=== PATIENT | female | born 1950 | race Caucasian/White ===

== ENCOUNTER → 2017-04-22 | Outpatient (CLI) | payer OTHER ==
[~2017-04-22] MED LIST: ALLOPURINOL100 MG PO; ATIVAN0.5 MG PO; ATORVASTATIN CA20 M1 PO; CYMBALTA60 MG PO; GLUCOPHAGE500 MG PO; HYDROCODONE BIT1 T20 PO; KEFLEX 500 MG E2 CAP PO; METFORMIN HCL500 MG PO; NABUMETONE750 M1 PO; NEURONTIN300 MG PO; SYNTHROID,LEV125 MCG PO; Synthroid,Levo88 MCG PO; TROSPIUM CHLORI60 M1 PO; VANCO 1 GR1 GM/250 M IV; ZOLOFT100 MG PO
== END | disposition home or self-care (01) ==
LOC: ORTHO 02:00
DX: M17.12 Unilateral primary osteoarthritis, left knee (principal); M25.762 Osteophyte, left knee

== ENCOUNTER → 2017-07-16 | Outpatient (CLI) | payer OTHER | END | disposition home or self-care (01) | LOC: US 12:49 | DX: I73.9 Peripheral vascular disease, unspecified (principal) ==

== ENCOUNTER → 2018-11-12 | Outpatient (CLI) | payer OTHER ==
[~2018-11-12] MED LIST changes: +VICODIN 5-3001 EACH PO
== END | disposition home or self-care (01) ==
LOC: ORTHO 00:57
DX: S52.572D Other intraarticular fracture of lower end of left radius, subsequent encounter for closed fracture with routine healing (principal); X58.XXXD Exposure to other specified factors, subsequent encounter

== ENCOUNTER → 2018-11-24 | Outpatient (CLI) | payer OTHER | END | disposition home or self-care (01) | LOC: ORTHO 00:04 | DX: S52.572D Other intraarticular fracture of lower end of left radius, subsequent encounter for closed fracture with routine healing (principal); X58.XXXD Exposure to other specified factors, subsequent encounter ==

== ENCOUNTER → 2018-12-10 | Outpatient (CLI) | payer OTHER | END | disposition home or self-care (01) | LOC: RAD 12:47 | DX: Z13.820 Encounter for screening for osteoporosis (principal); Z78.0 Asymptomatic menopausal state ==

== ENCOUNTER → 2018-12-15 | Outpatient (CLI) | payer OTHER | END | disposition home or self-care (01) | LOC: ORTHO 00:56 | DX: S52.572D Other intraarticular fracture of lower end of left radius, subsequent encounter for closed fracture with routine healing (principal); X58.XXXD Exposure to other specified factors, subsequent encounter ==

== ENCOUNTER → 2019-01-12 | Outpatient (CLI) | payer OTHER | END | disposition home or self-care (01) | LOC: ORTHO 01-11 19:06 | DX: S52.572D Other intraarticular fracture of lower end of left radius, subsequent encounter for closed fracture with routine healing (principal); X58.XXXD Exposure to other specified factors, subsequent encounter ==

== ENCOUNTER → 2019-07-21 | Outpatient (CLI) | payer OTHER ==
[2019-07-21 16:55] LABS: BACTERIA 1+; BILIRUBIN NEGATIVE (NEGATIVE); BLOOD NEGATIVE (NEGATIVE); CLARITY CLEAR (CLEAR); COLOR YELLOW (YELLOW); EPITHELIAL CELLS 21-30; GLUCOSE NEGATIVE (NEGATIVE); KETONE NEGATIVE (NEGATIVE); LEUKO ESTERASE TRACE (NEGATIVE); NITRITE NEGATIVE (NEGATIVE); UROBILINOGEN 0.2 E.U./dl (0.2-1.0)
== END | disposition home or self-care (01) ==
LOC: LAB 13:29
PROVIDERS: Internal Medicine
DX: N39.0 Urinary tract infection, site not specified (principal)

== ENCOUNTER 2021-04-16 12:27 | Emergency (ER) | payer OTHER ==
[~2021-04-16] VITALS: Wt 77.1 kg
== END 2021-04-16 14:39 | disposition home or self-care (01) ==
LOC: ED 12:27
DX: S00.12XA Contusion of left eyelid and periocular area, initial encounter (principal); S00.83XA Contusion of other part of head, initial encounter; S60.011A Contusion of right thumb without damage to nail, initial encounter; M47.892 Other spondylosis, cervical region; M10.9 Gout, unspecified; E03.9 Hypothyroidism, unspecified; M19.90 Unspecified osteoarthritis, unspecified site; E78.00 Pure hypercholesterolemia, unspecified; E11.9 Type 2 diabetes mellitus without complications; Z91.030 Bee allergy status; Z88.2 Allergy status to sulfonamides; Z88.8 Allergy status to other drugs, medicaments and biological substances; Z79.899 Other long term (current) drug therapy; Z98.890 Other specified postprocedural states; W18.39XA Other fall on same level, initial encounter; Y93.89 Activity, other specified; Y92.89 Other specified places as the place of occurrence of the external cause; Y99.8 Other external cause status

== ENCOUNTER → 2021-07-22 | Outpatient (CLI) | payer OTHER | END | disposition home or self-care (01) | LOC: COVID19 08:17 | PROVIDERS: ATTEND Internal Medicine | DX: Z20.822 Contact with and (suspected) exposure to COVID-19 (principal) ==

== ENCOUNTER 2021-08-14 17:49 | Inpatient (IN) | payer MEDICARE, SELFPAY ==
[~2021-08-14] VITALS: Ht 166.6 cm; Wt 81.2 kg
[2021-08-14 00:44] VITALS: BP 118/61
[2021-08-14 17:58] VITALS: BP 120/50
[2021-08-14 18:38] LABS: BASO % 0.8 % (0.0-1.0); EOS # 0.3 10*3/uL (0.0-0.4); HEMATOCRIT 33.7 % (37.0-47.0); LYMPH # 1.3 10*3/uL (1.3-4.4); LYMPH % 25.4 % (27.0-41.0); MEAN CELL VOLUME 82.2 fl (81.0-99.0); MEAN CORPUSCULAR HGB 26.6 pg (27.0-31.0); MEAN CORPUSCULAR HGB CONC 32.3 g/dl (33.0-37.0); MONO # 0.3 10*3/uL (0.1-1.0); NEUT # 3.2 10*3/uL (2.3-7.9); NEUT % 61.6 % (47.0-73.0); PLATELET COUNT AUTOMATED 199 10*3/uL (130-400); RED CELL DISTRI WIDTH 13.2 % (0-14.5); WHITE BLOOD COUNT 5.2 10*3/uL (4.8-10.8)
[2021-08-14 18:49] LABS: ACT PARTIAL THROMBO TIME 23.7 SECONDS (20.0-32.1); INTERNATIONAL NORM RATIO 0.9 (2.0-3.5)
[2021-08-14 18:56] LABS: BUN 26 mg/dl (7-24); CHLORIDE 110 mmol/L (98-107); CREATININE 1.01 mg/dL (0.55-1.02); POTASSIUM 4.9 mmol/L (3.5-5.1); SGOT/AST 15 IU/L (3-35); SGPT/ALT 21 U/L (12-78); SODIUM 140 mmol/L (136-145)
[2021-08-14 18:57] LABS: ALKALINE PHOSPHATASE 150 U/L (45-117); TOTAL PROTEIN 6.5 gm/dL (6.4-8.2)
[2021-08-14 19:26] VITALS: BP 129/64
[2021-08-14 19:31] LABS: BILIRUBIN Negative (Negative); BLOOD Negative (Negative); CLARITY Cloudy (Clear); COLOR Yellow (Yellow); GLUCOSE Negative (Negative); KETONE Trace (Negative); LEUKO ESTERASE 3+ (Negative); NITRITE Positive (Negative); PH 5.5 (4.5-8.0)
[2021-08-14 19:54] LABS: BACTERIA 4+; WBC 16-20 wbc/hpf (0-5)
[2021-08-14] MEDS ORDERED: OXYBUTYNIN ER15 MG PO (20:22)
[2021-08-14] MEDS ORDERED: XANAX0.25 MG PO (20:23)
[2021-08-14] MEDS ORDERED: LEVOTHYROXINE100 MC1 PO (20:23)
[2021-08-14] MEDS ORDERED: METFORMIN HYDR500 MG PO (20:23)
[2021-08-14] MEDS ORDERED: TRAZODONE50 MG PO (20:23)
[2021-08-14] MEDS ORDERED: VOLTAREN50 M1 PO (20:24)
[2021-08-14] MEDS ORDERED: NEURONTIN300 MG PO (20:24)
[2021-08-14] MEDS ORDERED: FAMOTIDINE40 MG PO (20:25)
[2021-08-14 21:07] VITALS: BP 126/72; BP 129/64
[2021-08-15 08:00] VITALS: BP 122/52
[2021-08-15 12:00] VITALS: BP 142/62
[2021-08-15 16:00] VITALS: BP 127/67
[2021-08-15 20:00] VITALS: BP 142/81
[2021-08-16] VITALS: BP 123/56
[2021-08-16 08:00] VITALS: BP 128/82
[2021-08-16 12:00] VITALS: BP 132/69
== END 2021-08-16 13:43 | disposition home or self-care (01) | DRG 689 ==
LOC: ED 17:49 → EDHOLD 08-15 00:13 → 4E 08-15 00:13
PROVIDERS: Emergency Medicine; ADMIT Internal Medicine; ATTEND Internal Medicine
DX: N39.0 Urinary tract infection, site not specified (principal); G93.41 Metabolic encephalopathy; I47.1 Supraventricular tachycardia; F33.1 Major depressive disorder, recurrent, moderate; F41.1 Generalized anxiety disorder; E03.9 Hypothyroidism, unspecified; W19.XXXA Unspecified fall, initial encounter; E11.42 Type 2 diabetes mellitus with diabetic polyneuropathy; E78.2 Mixed hyperlipidemia; M19.90 Unspecified osteoarthritis, unspecified site; M79.7 Fibromyalgia; K21.00 Gastro-esophageal reflux disease with esophagitis, without bleeding; F51.01 Primary insomnia; F51.04 Psychophysiologic insomnia; Y93.89 Activity, other specified; Y92.89 Other specified places as the place of occurrence of the external cause; Y99.8 Other external cause status; Z88.2 Allergy status to sulfonamides; Z88.1 Allergy status to other antibiotic agents; Z91.030 Bee allergy status; Z79.899 Other long term (current) drug therapy

== ENCOUNTER → 2021-10-15 | Outpatient (CLI) | payer MEDICARE ==
[~2021-10-15] MED LIST changes: +FAMOTIDINE40 MG PO; +LEVOTHYROXINE100 MC1 PO; +METFORMIN HYDR500 MG PO; +OXYBUTYNIN ER15 MG PO; +TRAZODONE50 MG PO; +VOLTAREN50 M1 PO; +XANAX0.25 MG PO
== END | disposition home or self-care (01) ==
LOC: CARD 13:00
PROVIDERS: ATTEND Internal Medicine Cardiovascular Disease
DX: I08.0 Rheumatic disorders of both mitral and aortic valves (principal); I47.1 Supraventricular tachycardia

== ENCOUNTER 2021-10-21 14:11 | Emergency (ER) | payer MEDICARE | END 2021-10-21 14:46 | disposition left against medical advice (07) | LOC: ED 14:11 | DX: Z53.21 Procedure and treatment not carried out due to patient leaving prior to being seen by health care provider (principal) ==

== ENCOUNTER 2021-10-21 15:14 | Emergency (ER) | payer MEDICARE ==
[~2021-10-21] VITALS: Wt 74.8 kg
== END 2021-10-21 17:03 | disposition left against medical advice (07) ==
LOC: ED 15:14
DX: Z53.21 Procedure and treatment not carried out due to patient leaving prior to being seen by health care provider (principal)

== ENCOUNTER 2024-05-25 14:00 | Emergency (ER) | payer MEDICARE ==
[~2024-05-25] VITALS: Ht 167.6 cm; Wt 63.5 kg
[2024-05-25 15:29] LABS: BASO # 0.1 10*3/uL (0.0-0.1); BASO % 1.1 % (0.0-1.0); EOS # 0.5 10*3/uL (0.0-0.4); EOS % 6.8 % (1.0-4.0); HEMATOCRIT 36.1 % (37.0-47.0); MEAN CELL VOLUME 84.7 fl (81.0-99.0); MEAN CORPUSCULAR HGB CONC 31.9 g/dl (33.0-37.0); MEAN PLATELET VOLUME 9.1 fl (9.6-12.3); MONO # 0.5 10*3/uL (0.1-1.0); MONO % 6.4 % (3.0-9.0); NEUT # 4.4 10*3/uL (2.3-7.9); NEUT % 60.6 % (47.0-73.0); PLATELET COUNT AUTOMATED 278 10*3/uL (130-400); RED BLOOD COUNT 4.26 10*6/uL (4.10-5.10); RED CELL DISTRI WIDTH 13.6 % (0-14.5); WHITE BLOOD COUNT 7.3 10*3/uL (4.8-10.8)
[2024-05-25 15:57] LABS: BILIRUBIN Negative (Negative); BLOOD Negative (Negative); CLARITY Clear (Clear); COLOR Yellow (Yellow); GLUCOSE Negative (Negative); KETONE Negative (Negative); LEUKO ESTERASE Negative (Negative); NITRITE Negative (Negative); PH 5.5 (4.5-8.0); UROBILINOGEN 0.2 E.U./dl (0.0-1.0)
[2024-05-25 16:03] LABS: URINE AMPHETAMINES Negative (1000ng/ml); URINE BARBITURATES Negative (200ng/ml); URINE BENZODIAZEPINES Negative (200ng/ml); URINE CANNABINOIDS (THC) Negative (50ng/ml); URINE COCAINE Negative (300ng/ml); URINE METHADONE Negative (300ng/ml); URINE OPIATES Negative (300ng/ml); URINE PHENCYCLIDINE Negative (25ng/ml)
[2024-05-25 16:03] LABS: BUN 25 mg/dl (9-23); CHLORIDE 106 mmol/L (98-107); CPK 58 U/L (34-171); POTASSIUM 4.2 mmol/L (3.4-5.1)
[2024-05-25 16:04] LABS: ETHYL ALCOHOL < 3.0 mg/dl (<3)
[2024-05-25 16:08] LABS: EPITHELIAL CELLS 0-2
[2024-05-25] MEDS ORDERED: SODIUM CHLORIDE 0.9% 1,000 ML IV ONE (16:10)
== END 2024-05-25 17:53 | disposition home or self-care (01) ==
LOC: ED 14:00
PROVIDERS: Nurse Practitioner Family
DX: F43.22 Adjustment disorder with anxiety (principal); F32.A Depression, unspecified; E78.00 Pure hypercholesterolemia, unspecified; E05.90 Thyrotoxicosis, unspecified without thyrotoxic crisis or storm; E11.9 Type 2 diabetes mellitus without complications; Z20.822 Contact with and (suspected) exposure to COVID-19; Z79.899 Other long term (current) drug therapy; Z88.2 Allergy status to sulfonamides; Z88.8 Allergy status to other drugs, medicaments and biological substances; Z91.030 Bee allergy status; Z90.89 Acquired absence of other organs; Z98.890 Other specified postprocedural states